=== PATIENT | female | born 1965 | race Caucasian/White ===

== ENCOUNTER 2018-08-09 10:39 | Outpatient (CLI) | payer BC ==
[2018-08-09 11:09] LABS: BASOPHILS % 0.4 (0.0-1.5); EOSINOPHILS % 3.3 % (0.0-6.8); MEAN CORPUSCULAR HEMOGLOBIN 29.8 pg (28.0-34.0)
[2018-08-09 11:10] LABS: NEUTROPHILS # 3.7 # k/uL (1.4-7.7)
[2018-08-09 11:29] LABS: eGFR (Non-African) > 60
== END 2018-08-09 10:40 ==
LOC: LAB 10:39
PROVIDERS: ATTEND Family Medicine
DX: B19.20 Unspecified viral hepatitis C without hepatic coma (principal)
CPT/HCPCS: 36415; 80053; 85025; 87522